=== PATIENT | female | born 1960 | race Caucasian/White ===

== ENCOUNTER 2022-09-26 12:05 | Inpatient (IN) | payer BC ==
[~2022-09-26] VITALS: Ht 160 cm; Wt 63.5 kg
[2022-09-26] MEDS ORDERED: IPRATROPIUM BROMIDE 0.5 MG/2.5 ML NEBU ONE (12:10)
[2022-09-26] MEDS ORDERED: ALBUTEROL SULFATE 2.5 MG/3 ML NEBU ONE (12:10)
[2022-09-26] MEDS ORDERED: IV NORMAL SALINE 1000 ML BAG IV ONE (12:15)
[2022-09-26 12:44] LABS: HEMATOCRIT 42.9 % (31.2-41.9); MEAN CORPUSCULAR HEMOGLOBIN 29.8 uug (24.7-32.8); MEAN CORPUSCULAR VOLUME 91.5 fL (75.5-95.3); PLATELET COUNT (AUTO) 263 K/uL (179-408)
[2022-09-26] MEDS ORDERED: IPRATROPIUM BROMIDE 0.5 MG/2.5 ML NEBU NEB ONE (13:15)
[2022-09-26] MEDS ORDERED: ALBUTEROL SULFATE 2.5 MG/3 ML NEBU NEB ONE (13:15)
[2022-09-26 13:22] LABS: ALANINE AMINOTRANSFERASE 36 U/L (14-59); ALKALINE PHOSPHATASE 78 U/L (50-136); ASPARTATE AMINOTRANSFERASE 33 U/L (15-37); BILIRUBIN,DIRECT 0.1 mg/dL (0.0-0.2); BILIRUBIN,TOTAL 0.4 mg/dL (0.2-1.0); CARBON DIOXIDE 25 mmol/L (21-32); CHLORIDE 102 mmol/L (98-107); CREATININE 0.7 mg/dL (0.6-1.3); GLUCOSE 121 mg/dL (74-106); POTASSIUM 3.5 mmol/L (3.5-5.1); TOTAL PROTEIN, SERUM 7.3 g/dL (6.4-8.2); UREA NITROGEN, BLOOD 10 mg/dL (7-18)
[2022-09-26 14:52] LABS: *BILIRUBIN,URIN NEGATIVE (NEGATIVE); *BLOOD, URINE NEGATIVE (NEGATIVE); *CLARITY,URINE CLEAR (CLEAR); *COLOR,URINE YELLOW (YELLOW); *KETONES,URINE 2+ (NEGATIVE); *UROBILINOGEN,URINE 0.2 E.U./dl (NORMAL); LEUKOCYTE ESTERASE ,URINE NEGATIVE (NEGATIVE); NITRITE, URINE NEGATIVE (NEGATIVE); PH,URINE 5.5 (5.0-8.0); UGLUCOSE NEGATIVE (NEGATIVE)
[2022-09-26] MEDS ORDERED: ALBUTEROL SULFATE 2.5 MG/ 0.5 ML NEBU NEB PRN (15:00)
[2022-09-26] MEDS ORDERED: REMEDY ESSENTIAL ZINC PASTE 113 GM TP PRN (15:00)
[2022-09-26] MEDS ORDERED: ENOXAPARIN SODIUM 40 MG/0.4 ML DISP.SYRIN SQ SCH ×2 (15:00→17:05)
[2022-09-26] MEDS ORDERED: IPRATROPIUM BROMIDE 0.5 MG/2.5 ML NEBU NEB PRN (15:00)
[2022-09-26] MEDS ORDERED: MAGNESIUM HYDROXIDE 30 ML LIQUID UDC PO PRN (15:00)
[2022-09-26] MEDS ORDERED: ONDANSETRON 4 MG/2 ML VIAL IV PRN (15:00)
[2022-09-26 15:09] LABS: *AMPHETAMINE, URINE NEGATIVE (NEGATIVE); *CANNABINOID, URINE NEGATIVE (NEGATIVE); *COCCAINE, URINE NEGATIVE (NEGATIVE); *PHENCYCLIDINE SCREEN,URINE NEGATIVE (NEGATIVE)
[2022-09-26 17:00] VITALS: BP 151/93
[2022-09-26] MEDS ORDERED: IV NS 1000 ML 1,000 ML IV ONE (17:30)
[2022-09-26 18:00] VITALS: BP 136/83
[2022-09-26] MEDS: ACETAMINOPHEN 325 MG TABLET PO PRN (18:24)
[2022-09-26 20:57] VITALS: BP 134/70
[2022-09-26] MEDS: CEFEPIME HCL 1 G in IV DEXTROSE 5% 50 ML IV SCH (22:02)
[2022-09-27 00:21] VITALS: BP 110/61
[2022-09-27 04:48] VITALS: BP 127/68
[2022-09-27] MEDS: CEFEPIME HCL 1 G in IV DEXTROSE 5% 50 ML IV SCH ×3 (05:08→21:17)
[2022-09-27 06:37] LABS: MEAN CORPUSCULAR HEMOGLOBIN 30.3 uug (24.7-32.8); MEAN CORPUSCULAR VOLUME 90.1 fL (75.5-95.3); PLATELET COUNT (AUTO) 272 K/uL (179-408)
[2022-09-27 07:03] LABS: BILIRUBIN,TOTAL 0.5 mg/dL (0.2-1.0); CREATININE 0.7 mg/dL (0.6-1.3); MAGNESIUM 1.9 mg/dL (1.8-2.4); PHOSPHOROUS 3.5 mg/dL (2.5-4.9); POTASSIUM 3.9 mmol/L (3.5-5.1); TOTAL PROTEIN, SERUM 6.5 g/dL (6.4-8.2)
[2022-09-27] MEDS: ENOXAPARIN SODIUM 40 MG/0.4 ML DISP.SYRIN SQ SCH (08:10)
[2022-09-27] MEDS: PANTOPRAZOLE SODIUM 40 MG VIAL IV SCH (08:10)
[2022-09-27 11:15] VITALS: BP 126/80
[2022-09-27] MEDS ORDERED: IOHEXOL 350 100 ML INFUS..BTL ONE (15:12)
[2022-09-27] MEDS ORDERED: SWABABLE VALVE TRANSFER SET EA MC ONE (15:12)
[2022-09-27] MEDS ORDERED: IV NORMAL SALINE 250 ML IV ONE (15:12)
[2022-09-27 15:30] VITALS: BP 121/82
[2022-09-27] MEDS: ACETAMINOPHEN 325 MG TABLET PO PRN (18:36)
[2022-09-27 20:00] VITALS: BP 120/81
[2022-09-28] VITALS: BP 101/69
[2022-09-28 04:00] VITALS: BP 111/72
[2022-09-28] MEDS: CEFEPIME HCL 1 G in IV DEXTROSE 5% 50 ML IV SCH (05:00)
[2022-09-28 05:56] LABS: ABG BASE EXCESS 0.9 mmol/L; ABG HCO3 24.9 mmol/L; ABG PCO2 37.8 mmHg (35.0-45.0); ABG PH 7.436 (7.350-7.450); ABG PO2 64.5 mmHg (75.0-100.0); ABG SITE RIGHT RADIAL; ABG TOTAL HEMOGLOBIN 13.8 G/dL (12.0-16.0); COHb 0.4 % (0.5-1.5); MetHb 0.1 % (0.0-1.5); O2Hb 92.4 % (94.0-97.0); VENT MODE Nasal Cannula
[2022-09-28 06:32] LABS: HEMATOCRIT 38.1 % (31.2-41.9); MEAN CORPUSCULAR HEMOGLOBIN 30.9 uug (24.7-32.8); MEAN CORPUSCULAR VOLUME 90.2 fL (75.5-95.3); PLATELET COUNT (AUTO) 263 K/uL (179-408)
[2022-09-28 07:26] LABS: CREATININE 0.8 mg/dL (0.6-1.3); MAGNESIUM 1.9 mg/dL (1.8-2.4); PHOSPHOROUS 4.4 mg/dL (2.5-4.9); POTASSIUM 4.2 mmol/L (3.5-5.1)
[2022-09-28] MEDS: PANTOPRAZOLE SODIUM 40 MG VIAL IV SCH (08:18)
[2022-09-28] MEDS: ENOXAPARIN SODIUM 40 MG/0.4 ML DISP.SYRIN SQ SCH (08:18)
[2022-09-28 11:01] VITALS: BP 129/88
[2022-09-28] MEDS ORDERED: ALBU8.5H8 INH (11:12)
[2022-09-28] MEDS ORDERED: DOXY100C PO (11:12)
== END 2022-09-28 13:05 | disposition home or self-care (01) | DRG 205 ==
LOC: ER 12:05 → TELE3 16:40
PROVIDERS: ADMIT Nurse Practitioner Acute Care; ATTEND Nurse Practitioner Acute Care
DX: J95.89 Other postprocedural complications and disorders of respiratory system, not elsewhere classified (principal); J69.0 Pneumonitis due to inhalation of food and vomit; J96.01 Acute respiratory failure with hypoxia; J98.11 Atelectasis; K57.90 Diverticulosis of intestine, part unspecified, without perforation or abscess without bleeding; Z87.891 Personal history of nicotine dependence; Z90.711 Acquired absence of uterus with remaining cervical stump; Z80.0 Family history of malignant neoplasm of digestive organs; D72.829 Elevated white blood cell count, unspecified; Z20.822 Contact with and (suspected) exposure to COVID-19
CPT/HCPCS: 36415; 36600; 71045; 71275; 83605; 83735; 84100; 84484; 85025; 87040; 93005; 94640; A4663; C9113; G0378; J0692; J1650; J2405; J3590; J7040; Q9967